=== PATIENT | female | born 1995 | race American Indian/Alaskan Native ===

== ENCOUNTER 2018-03-22 14:05 | Emergency (ER) | payer BC, OTHER ==
[2018-03-22 14:40] VITALS: O2SAT 100; BMI 30.4
--- NOTE | 2018-03-22 14:42 | ED PDOC ---
Arrival/HPI - General Chief Complaint: ENT Problem Time Seen by Provider: 03/22/18 14:39 Historian: Patient - History of Present Illness Narrative History of Present Illness (Text): 03/22/18 14:40 23 y/o female, no significant pmh, nkda, c/o throat discomfort x 2 days. Pt. stated that she is concerning about strept throat, mild throat discomfort, no nausea/vomiting/diarrhea, no abdominal/pelvic pain, no night sweat, no rash, no dizziness, no change in vision, no numbness or tingling, no palpitation, no rash, no other medical or psychological complaints. I reviewed the triage nurse note, my assessment with the triage is different and shows the above HPI. Pt. disagreed with the nausea/vomiting/diarrhea on the triage as well. Past Medical History - Provider Review Nursing Documentation Reviewed: Yes - Psychiatric Hx Substance Use: No Family/Social History - Physician Review Nursing Documentation Reviewed: Yes Family/Social History: Unknown Family HX Smoking Status: Never Smoked Hx Alcohol Use: Yes Frequency of alcohol use: Socially Hx Substance Use: No Allergies/Home Meds Allergies/Adverse Reactions: Allergies blueberry Allergy (Verified 03/22/18 14:30) ANAPHYLAXIS Review of Systems - Review of Systems Constitutional: absent: Fatigue, Fevers Eyes: absent: Vision Changes ENT: Sore Throat. absent: Hearing Changes Respiratory: absent: SOB, Cough Cardiovascular: absent: Chest Pain Gastrointestinal: absent: Abdominal Pain, Nausea, Vomiting Skin: absent: Rash, Pruritis Neurological: absent: Headache, Dizziness Psychiatric: absent: Anxiety, Depression, Suicidal Ideation Physical Exam Vital Signs Reviewed: Yes Vital Signs Temp Pulse Resp BP Pulse Ox 03/22/18 14:30 98.3 F 79 17 123/67 100 Temperature: Afebrile Blood Pressure: Normal Pulse: Regular Respiratory Rate: Normal Appearance: Positive for: Well-Appearing, Non-Toxic, Comfortable Pain Distress: None Mental Status: Positive for: Alert and Oriented X 3 - Systems Exam Head: Present: Atraumatic, Normocephalic Pupils: Present: PERRL Extroacular Muscles: Present: EOMI Conjunctiva: Present: Normal Mouth: Present: Moist Mucous Membranes Pharnyx: Present: Normal. No: ERYTHEMA, EXUDATE, TONSILS ENLARGED, Peritonsilar Swelling, Muffled/Hoarse Voice, Strider, Soft Palate/Uvular Edema Neck: Present: Normal Range of Motion, Trachea Midline. No: Meningeal Signs, MIDLINE TENDERNESS, Paraspinal Tenderness, Lymphadenopathy Respiratory/Chest: Present: Clear to Auscultation, Good Air Exchange. No: Respiratory Distress, Accessory Muscle Use Cardiovascular: Present: Regular Rate and Rhythm, Normal S1, S2. No: Murmurs Abdomen: No: Tenderness, Distention, Peritoneal Signs Back: Present: Normal Inspection Upper Extremity: Present: Normal Inspection. No: Cyanosis, Edema Lower Extremity: Present: Normal Inspection. No: Edema Neurological: Present: GCS=15, CN II-XII Intact, Speech Normal, Motor Func Grossly Intact, Gait Normal, Memory Normal Skin: Present: Warm, Dry, Normal Color. No: Rashes Lymphatic: No: Cervical Adenopathy Psychiatric: Present: Alert, Oriented x 3, Normal Insight, Normal Concentration Medical Decision Making ED Course and Treatment: 03/22/18 14:43 -rapid strept 03/22/18 15:27 -rapid strept is negative, clinical suspicious for rapid strep is very low. -Discharge home with tylenol, salt water gargling, bed rest, soft food diet, follow up with your own pmd and ENT within 2 days, return to the ER for any new or worsening signs or symptoms. - PA / RESEARCH PROGRAM INTERN / Resident Statement / has reviewed & agrees with the documentation as recorded. Disposition/Present on Arrival - Present on Arrival Any Indicators Present on Arrival: No History of DVT/PE: No History of Uncontrolled Diabetes: No Urinary Catheter: No History of Decub. Ulcer: No History Surgical Site Infection Following: None - Disposition Have Diagnosis and Disposition been Completed?: Yes Diagnosis: Throat discomfort Disposition: HOME/ ROUTINE Disposition Time: 15:28 Patient Plan: Discharge Patient Problems: Current Active Problems Problem Status Onset Throat discomfort Acute Condition: GOOD Additional Instructions: -Discharge home with tylenol, salt water gargling, bed rest, soft food diet, follow up with your own pmd and ENT within 2 days, return to the ER for any new or worsening signs or symptoms. Prescriptions: Acetaminophen [Pain Relief] 500 mg PO QID PRN #30 tablet PRN Reason: Other Referrals: Gurvinder Trivedi DO [[facility]] - Follow up with primary [facility] [place] - Follow up with primary Forms: [employer] (Filipino), WORK NOTE
[2018-03-22 23:02] VITALS: BP 121/70; PULSE 82; RESP 18; TEMP 98.5
== END 2018-03-22 15:00 | disposition home or self-care (01) ==
LOC: MERGE 14:05 → ED 14:05
DX: R07.0 Pain in throat (principal)

== ENCOUNTER 2018-04-20 19:04 | Emergency (ER) | payer BC, OTHER ==
[2018-04-20 19:26] VITALS: BMI 29.6
[2018-04-20 19:36] VITALS: BP 114/75; O2SAT 99
--- NOTE | 2018-04-20 19:42 | ED PDOC ---
Arrival/HPI <Sidney Bassett - Last Filed: 04/20/18 20:07> - General Historian: Patient - History of Present Illness Narrative History of Present Illness (Text): 04/20/18 19:40 23 year old female, no significant pmh, nkda, complaining of concerning for UTI x 2 days. Pt. stated that she has urinary frequency with suprapubic pressure x 2 days, no vaginal bleeding or discharge, no numbness or tingling, no palpitation, no rash, no diarrhea, no other medical or psychological complaints. <Owen Edwards - Last Filed: 04/20/18 20:30> - General Chief Complaint: Female Genitourinary Time Seen by Provider: 04/20/18 19:36 Past Medical History - Provider Review Nursing Documentation Reviewed: Yes - Infectious Disease Hx of Infectious Diseases: None - Reproductive Menopause: No - Psychiatric Hx Substance Use: No <Owen Edwards - Last Filed: 04/20/18 20:30> Family/Social History - Physician Review Nursing Documentation Reviewed: Yes Family/Social History: Unknown Family HX Smoking Status: Never Smoked Hx Alcohol Use: Yes Hx Substance Use: No <Owen Edwards - Last Filed: 04/20/18 20:30> Allergies/Home Meds <Sidney Bassett - Last Filed: 04/20/18 20:07> <Owen Edwards - Last Filed: 04/20/18 20:30> Allergies/Adverse Reactions: Allergies blueberry Allergy (Verified 03/24/18 09:29) ANAPHYLAXIS Review of Systems - Review of Systems Constitutional: absent: Fatigue, Fevers Eyes: absent: Vision Changes ENT: absent: Hearing Changes Respiratory: absent: SOB, Cough Cardiovascular: absent: Chest Pain Gastrointestinal: Other (+suprapubic pressure). absent: Abdominal Pain, Nausea, Vomiting Genitourinary Female: Frequency. absent: Dysuria, Hematuria Musculoskeletal: absent: Arthralgias, Back Pain Skin: absent: Rash, Pruritis Neurological: absent: Headache, Dizziness, Speech Changes Psychiatric: absent: Anxiety, Depression, Suicidal Ideation <Owen Edwards - Last Filed: 04/20/18 20:30> Physical Exam Vital Signs Temp Pulse Resp BP Pulse Ox 04/20/18 19:26 98.4 F 100 H 20 114/75 99 <Sidney Bassett - Last Filed: 04/20/18 20:07> Vital Signs Reviewed: Yes Vital Signs Temp Pulse Resp BP Pulse Ox 04/20/18 19:26 98.4 F 100 H 20 114/75 99 Temperature: Afebrile Blood Pressure: Normal Pulse: Tachycardic Respiratory Rate: Normal Appearance: Positive for: Well-Appearing, Non-Toxic, Comfortable Pain Distress: None Mental Status: Positive for: Alert and Oriented X 3 - Systems Exam Head: Present: Atraumatic, Normocephalic Pupils: Present: PERRL Extroacular Muscles: Present: EOMI Conjunctiva: Present: Normal Mouth: Present: Moist Mucous Membranes Neck: Present: Normal Range of Motion Respiratory/Chest: Present: Clear to Auscultation, Good Air Exchange. No: Respiratory Distress, Accessory Muscle Use Cardiovascular: Present: Regular Rate and Rhythm, Normal S1, S2. No: Murmurs Abdomen: No: Tenderness, Distention, Peritoneal Signs, Rebound, Guarding Back: Present: Normal Inspection Upper Extremity: Present: Normal Inspection. No: Cyanosis, Edema Lower Extremity: Present: Normal Inspection. No: Edema Neurological: Present: GCS=15, CN II-XII Intact, Speech Normal Skin: Present: Warm, Dry, Normal Color. No: Rashes Psychiatric: Present: Alert, Oriented x 3, Normal Insight, Normal Concentration <Owen Edwards - Last Filed: 04/20/18 20:30> Medical Decision Making ED Course and Treatment: 04/20/18 19:42 -Urine hcg -Urinalysis -Observe and reassess 04/20/18 20:28 -Urine hcg is negative -Urinalysis show +UTI -Rocephine 1gm IM ordered. -Pt. feels well, stable for outpatient oral antibiotic. -Discharge home with macrobid, motrin, stay hydrated, follow up with your own pmd within 2 days, repeat the Urinalysis test after completion of antibiotic, return to the ER for any new or worsening signs or symptoms. <Owen Edwards - Last Filed: 04/20/18 20:30> - PA / HOSPICE ART THERAPIST / Resident Statement / has reviewed & agrees with the documentation as recorded. TERRELL has examined the patient and agrees with the treatment plan. <Sidney Bassett - Last Filed: 04/20/18 20:07> - PA / HOSPICE ART THERAPIST / Resident Statement MD/DO has reviewed & agrees with the documentation as recorded. <Owen Edwards - Last Filed: 04/20/18 20:30> Disposition/Present on Arrival <Sidney Bassett - Last Filed: 04/20/18 20:07> - Present on Arrival Any Indicators Present on Arrival: No History of DVT/PE: No History of Uncontrolled Diabetes: No Urinary Catheter: No History of Decub. Ulcer: No History Surgical Site Infection Following: None - Disposition Have Diagnosis and Disposition been Completed?: Yes Disposition Time: 20:30 Patient Plan: Discharge <Owen Edwards - Last Filed: 04/20/18 20:30> - Disposition Diagnosis: UTI (urinary tract infection) Disposition: HOME/ ROUTINE Condition: IMPROVED Additional Instructions: Discharge home with macrobid, motrin, stay hydrated, follow up with your own pmd within 2 days, repeat the Urinalysis test after completion of antibiotic, return to the ER for any new or worsening signs or symptoms. Prescriptions: Ibuprofen [Motrin] 600 mg PO QID PRN #30 tab PRN Reason: Other Nitrofurantoin Macrocrystals [Macrobid] 100 mg PO BID #14 cap Referrals: Angie Jones APN [Primary Care Provider] - Follow up with primary Forms: [employer] (Citizen [place]), WORK NOTE
[2018-04-20 20:03] LABS: URINE BILIRUBIN SMALL (NEGATIVE); URINE BLOOD LARGE (NEGATIVE); URINE GLUCOSE (UA) NEGATIVE (NEGATIVE); URINE LEUKOCYTE ESTERASE MODERATE Leu/uL (NEGATIVE); URINE PROTEIN 30 mg/dL (<30 mg/dL); URINE UROBILINOGEN 0.2 E.U./dL (<1 E.U./dL)
[2018-04-20 20:17] LABS: URINE APPEARANCE CLOUDY (CLEAR); URINE COLOR YELLOW (YELLOW); URINE EPITHELIAL CELLS MANY /hpf (0-5); URINE RBC 25 - 30 /hpf (0-2); URINE WBC TNTC /hpf (0-6)
[2018-04-20 20:18] LABS: URINE BACTERIA MANY (NEG)
[2018-04-20] MEDS ORDERED: cefTRIAXone (Rocephin) 1 gm Inj IM STA (20:28)
[2018-04-20 20:51] VITALS: PULSE 88; RESP 16; TEMP 98.8
== END 2018-04-20 21:00 | disposition home or self-care (01) ==
LOC: ED 19:04
DX: N39.0 Urinary tract infection, site not specified (principal)
CPT/HCPCS: 81001; 87086; 96372; 99283; J0696